=== PATIENT | male | born 1965 | race Caucasian/White ===

== ENCOUNTER 2018-03-15 20:16 | Emergency (ER) | payer OTHER ==
[~2018-03-15] VITALS: Ht 182.9 cm; Wt 99.8 kg
[2018-03-15 20:25] VITALS: BP 159/96
[2018-03-15] MEDS ORDERED: BUPIVACAINE 0.5% 50 ML VIAL. ONE (20:33)
[2018-03-15] MEDS ORDERED: LIDOCAINE WITH 8.4% SOD BICARB 3 ML DISP.SYRIN. ONE (20:34)
[2018-03-15] MEDS ORDERED: LIDOCAINE WITH 8.4% SOD BICARB 3 ML DISP.SYRIN. INJ ONE (21:15)
[2018-03-15] MEDS ORDERED: TETANUS AND DIPHTHERIA TOX/PF 0.5 ML DISP.SYRIN. VAX IM ONE (21:15)
[2018-03-15] MEDS ORDERED: BUPIVACAINE 0.5% 50 ML VIAL. SQ ONE (21:15)
[2018-03-15] MEDS ORDERED: CLIN150C14 PO (21:57)
[2018-03-15] MEDS ORDERED: HYDR-971 PO (21:57)
--- NOTE | 2018-03-15 21:58 | PHYS DOC ---
Past Medical History Past Medical History: Arthritis, GERD Past Surgical History: Hip Replacement Additional Past Surgical Histo: RIGHT HIP REPLACEMENT Drug Use: None Adult General Chief Complaint Chief Complaint: HAND PROBLEM HPI HPI Patient is a 52 year old male who presents with injury to his left ring and middle fingers. Patient reports he was using a table saw and the wood twisted, causing his finger to go into the blade. Bleeding is controlled with pressure. Unknown tetanus status. Denies other injury. Review of Systems Review of Systems Respiratory: Denies cough or shortness of breath [] Cardiovascular: No additional information not addressed in HPI [] Musculoskeletal: Left middle and ring finger laceration Neurologic: Denies focal weakness or sensory changes [] All other systems were reviewed and found to be within normal limits, except as documented in this note. Current Medications Current Medications Current Medications Medications (Trade) Dose Ordered Sig/Damion Start Time Stop Time Status Last Admin Dose Admin Bupivacaine HCl (Marcaine 0.5%) 50 ml 1X ONCE 03/15/18 21:15 03/15/18 21:16 DC 03/15/18 21:15 50 ML Lidocaine/Sodium Bicarbonate (Buffered Lidocaine 1%) 6 ml 1X ONCE 03/15/18 21:15 03/15/18 21:16 DC 03/15/18 22:29 3 ML Tetanus/ Diphtheria Toxoids (Tenivac Syringe) 0.5 ml ONCE ONCE 03/15/18 21:15 03/15/18 21:16 DC 03/15/18 22:28 0.5 ML Allergies Allergies Allergies Coded Allergies Type Severity Reaction Last Updated Verified No Known Drug Allergies 03/15/18 No Physical Exam Physical Exam Constitutional: Well developed, well nourished, no acute distress, non-toxic appearance. [] HENT: Normocephalic, atraumatic Neck: Normal range of motion, no tenderness, supple, no stridor. [] Skin: Warm, dry, two cm jagged laceration to the ulnar aspect of the middle finger. Avulsion laceration to the distal end of the ring finger Neurologic: Alert and oriented X 3, normal motor function, normal sensory function, no focal deficits noted. [] Psychologic: Affect normal, judgement normal, mood normal. [] Current Patient Data Vital Signs Vital Signs Date Time Temp Pulse Resp B/P (MAP) Pulse Ox O2 Delivery O2 Flow Rate FiO2 03/15/18 20:25 98.5 100 20 159/96 (117) 100 Room Air 98.5 EKG EKG [] Radiology/Procedures Radiology/Procedures [] Course & Med Decision Making Course & Med Decision Making Pertinent Labs and Imaging studies reviewed. (See chart for details) Plan: lortab rx, clindamycin rx, tetanus IM, wound care instructions, f/u with PCP, return precautions reviewed Andrey Disclaimer Dragon Disclaimer This electronic medical record was generated, in whole or in part, using a voice recognition dictation system. Departure Departure Impression: Primary Impression: Phalanx, distal fracture of finger Additional Impressions: Finger laceration Laceration of finger Disposition: HOME, SELF-CARE Condition: IMPROVED Referrals: RANGEL ARAUJO II, MD Patient Instructions: Finger Fracture, Fingertip Laceration Additional Instructions: Call Dr. Araujo (orthopedics) on Sunday for a follow up appointment. Scripts Hydrocodone/Apap 5-325 (NORCO 5-325 TABLET) 1 Each Tablet 1-2 TAB PO Q4-6HRS, #30 TAB Prov: RICHARDSON DIAZ APRN 03/15/18 Clindamycin Hcl (CLINDAMYCIN HCL) 150 Mg Capsule 1 CAP PO TID for 10 Days, #30 CAP Prov: RICHARDSON DIAZ APRN 03/15/18 Attending Signature Attending Signature I have reviewed the PA/TEACHING ASSOCIATE's note and plan of care. I was available for consultation as needed during the patient's visit in the emergency department. I agree with the clinical impression, plan, and disposition. Laceration/Wound Repair Laceration/Wound Repair : Wound Location: upper extremity (left middle finger) Wound's Depth, Shape: irregular, nail-avulsed Wound Length (cm): 3 Wound Explored: clean Irrigated w/ Saline (ccs): 100 Anesthesia: 1% Lidocaine, 0.5% Sensorcaine Volume Anesthetic (ccs): 3 Wound Repaired With: sutures Suture Size/Type: 4:0 Number of Sutures: 6 Layer Closure?: No Sterile Dressing Applied?: Yes Splint Applied?: Yes Type of Splint Applied: aluminum finger splint Sling Applied?: No Progress Digital block. Examined under a bloodless field. Laceration/Wound Repair Laceration/Wound Repair : Wound Location: upper extremity (left ring finger) Wound's Depth, Shape: irregular, nail-avulsed Wound Length (cm): 2 Wound Explored: clean Irrigated w/ Saline (ccs): 100 Anesthesia: 1% Lidocaine, 0.5% Sensorcaine Volume Anesthetic (ccs): 3 Wound Repaired With: Dermabond Layer Closure?: No Sterile Dressing Applied?: Yes Splint Applied?: No Sling Applied?: No Progress Digital block. Examined under bloodless field. Dermabond applied over avulsed area. Problem Qualifiers Primary Impression: Phalanx, distal fracture of finger Encounter type: initial encounter Finger: middle finger Fracture type: closed Fracture alignment: nondisplaced Laterality: left Qualified Codes: S62.663A - Nondisplaced fracture of distal phalanx of left middle finger, initial encounter for closed fracture Additional Impressions: Finger laceration Encounter type: initial encounter Finger: middle finger Damage to nail status: with damage Foreign body presence: without foreign body Laterality: left Qualified Codes: S61.313A - Laceration without foreign body of left middle finger with damage to nail, initial encounter Laceration of finger Encounter type: initial encounter Finger: ring finger Damage to nail status : with damage Foreign body presence: without foreign body Laterality: left Qualified Codes: S61.315A - Laceration without foreign body of left ring finger with damage to nail, initial encounter RICHARDSON DIAZ APRN Mar 15, 2018 21:58 JONNIE MÉNDEZ DO Mar 15, 2018 23:04
--- NOTE | 2018-03-16 07:39 | RAD ---
Indication: Injury to the left hand with laceration to third and fourth digits TECHNIQUE: 3 views of the left hand COMPARISON: None FINDINGS: Cortical deformity seen involving the medial aspect of the distal phalanx of the third finger with overlying soft tissue laceration. Soft tissue laceration also seen involving the tip of the fourth finger. IMPRESSION: Laceration injury to the medial cortex of the distal pharynx of the third finger. No extension to the articular surface. Electronically signed by: Claude Lobo DO (03/16/2018 7:36 AM) [facility]
== END 2018-03-15 22:20 | disposition home or self-care (01) ==
LOC: ER 20:16
DX: S62.663A Nondisplaced fracture of distal phalanx of left middle finger, initial encounter for closed fracture (principal); S61.313A Laceration without foreign body of left middle finger with damage to nail, initial encounter; S61.315A Laceration without foreign body of left ring finger with damage to nail, initial encounter; M19.90 Unspecified osteoarthritis, unspecified site; K21.9 Gastro-esophageal reflux disease without esophagitis; Z96.641 Presence of right artificial hip joint; W26.8XXA Contact with other sharp object(s), not elsewhere classified, initial encounter; Y93.89 Activity, other specified; Y92.89 Other specified places as the place of occurrence of the external cause; Y99.8 Other external cause status
CPT/HCPCS: 12002; 29130; 73130; 90471; 90714; 99284; J3490

== ENCOUNTER 2019-01-01 07:18 | Emergency (ER) | payer OTHER ==
[~2019-01-01] VITALS: Ht 185.4 cm; Wt 104.3 kg
[~2019-01-01 07:18] MED LIST: CLIN150C14 PO; HYDR-3164 PO
--- NOTE | 2019-01-01 07:57 | PHYS DOC ---
Past Medical History Past Medical History: Arthritis, Asthma, GERD Past Surgical History: Hip Replacement Additional Past Surgical Histo: RIGHT HIP REPLACEMENT Smoking: Cigarettes (The patient is a nonsmoker.) Alcohol Use: Occasionally Drug Use: None Adult General Chief Complaint Chief Complaint: ASTHMA HPI HPI Patient is a 53-year-old male, with a past history of asthma, who presents to the emergency department for evaluation. He states that yesterday, and worsening this morning, he began having some increasing shortness of breath. Has had a cough, productive of whitish mucus, and he has had some congestion as well. He has not had any fevers or chills. His mucus is mostly white, occasionally yellowish. He did visit the [facility] this past weekend, climbing to the [place] of [place] on Sunday, where he was at the top for about an hour, before returning to [place], and returning to this area on Sunday. He denies any pain, including any chest pain. He has not had any dizziness or lightheadedness, numbness or weakness. There are no alleviating or exacerbating factors to his symptoms. Review of Systems Review of Systems Constitutional: Denies fever or chills [] Eyes: Denies change in visual acuity, redness, or eye pain [] HENT: Denies nasal congestion or sore throat [] Respiratory: No additional information not addressed in HPI [] Cardiovascular: The patient denies any chest pain, palpitations, or orthopnea [] GI: Denies abdominal pain, nausea, vomiting, bloody stools or diarrhea [] : Denies dysuria or hematuria [] Musculoskeletal: Denies back pain or joint pain [] Integument: Denies rash or skin lesions [] Neurologic: Denies headache, focal weakness or sensory changes [] Endocrine: Denies polyuria or polydipsia [] All other systems were reviewed and found to be within normal limits, except as documented in this note. Current Medications Current Medications Current Medications Medications (Trade) Dose Ordered Sig/Damion Start Time Stop Time Status Last Admin Dose Admin Albuterol/ Ipratropium (Duoneb) 3 ml 1X ONCE 01/01/19 08:00 01/01/19 08:01 DC 01/01/19 08:30 3 ML Methylprednisolone Sodium Succinate (SOLU-Medrol 125MG VIAL) 125 mg 1X ONCE 01/01/19 08:45 01/01/19 08:46 01/01/19 08:42 125 MG Allergies Allergies Allergies Coded Allergies Type Severity Reaction Last Updated Verified No Known Drug Allergies 03/15/18 No Physical Exam Physical Exam PHYSICAL EXAM: CONSTITUTIONAL: Well developed, well nourished HEAD: normocephalic, atraumatic EENT: PERRL, EOMI. Conjunctivae normal color, sclerae non-icteric; moist mucous membranes. NECK: Supple, non-tender; no meningismus. LUNGS: There are scattered coarse rhonchi in all lung [place], without any wheezes or rales. breathing even and unlabored. Normal air movement. HEART: Regular rate and rhythm, no murmur CHEST: No deformity; non-tender ABDOMEN: The abdomen is soft, and non-tender, no masses or bruits. EXTREM: Normal ROM; no deformity, no calf tenderness. Normal pulses palpable in all extremities. There is no pedal edema. SKIN: No rash; no diaphoresis NEURO: Alert; normal speech and cognition; CN's grossly intact; strength grossly intact without focal deficit. BACK: No CVA TTP. Current Patient Data Vital Signs Vital Signs Date Time Temp Pulse Resp B/P (MAP) Pulse Ox O2 Delivery O2 Flow Rate FiO2 01/01/19 08:30 97 Room Air 01/01/19 07:24 97.7 100 18 142/89 (106) 97.7 Lab Values Laboratory Tests Test 01/01/19 07:56 White Blood Count 6.5 x10^3/uL (4.0-11.0) Red Blood Count 5.38 x10^6/uL (4.30-5.70) Hemoglobin 13.6 g/dL (13.0-17.5) Hematocrit 42.3 % (39.0-53.0) Mean Corpuscular Volume 79 fL (79-100) Mean Corpuscular Hemoglobin 25 pg (25-35) Mean Corpuscular Hemoglobin Concent 32 g/dL (31-37) Red Cell Distribution Width 15.2 % (11.5-14.5) H Platelet Count 161 x10^3/uL (140-400) Neutrophils (%) (Auto) 59 % (31-73) Lymphocytes (%) (Auto) 16 % (24-48) L Monocytes (%) (Auto) 6 % (0-9) Eosinophils (%) (Auto) 18 % (0-3) H Basophils (%) (Auto) 2 % (0-3) Neutrophils # (Auto) 3.8 x10^3uL (1.8-7.7) Lymphocytes # (Auto) 1.0 x10^3/uL (1.0-4.8) Monocytes # (Auto) 0.4 x10^3/uL (0.0-1.1) Eosinophils # (Auto) 1.2 x10^3/uL (0.0-0.7) H Basophils # (Auto) 0.1 x10^3/uL (0.0-0.2) Platelet Estimate Pending Sodium Level 139 mmol/L (136-145) Potassium Level 3.6 mmol/L (3.5-5.1) Chloride Level 102 mmol/L (98-107) Carbon Dioxide Level 25 mmol/L (21-32) Anion Gap 12 (6-14) Blood Urea Nitrogen 15 mg/dL (8-26) Creatinine 0.9 mg/dL (0.7-1.3) Estimated GFR (Cockcroft-Gault) 87.6 Glucose Level 145 mg/dL (70-99) H Lactic Acid Level 1.3 mmol/L (0.4-2.0) Calcium Level 8.7 mg/dL (8.5-10.1) EA-Edu-M-Type Natriuretic Peptide 31 pg/mL (0-124) Laboratory Tests 01/01/19 07:56 Laboratory Tests 01/01/19 07:56 EKG EKG Normal sinus rhythm a rate of 84 bpm, normal axis, normal intervals, Q waves in lead III only without other acute ischemic ST/T changes.[] Radiology/Procedures Radiology/Procedures [PROCEDURE: CHEST PA & LATERAL PA and lateral chest radiographs 01/01/2019 CLINICAL HISTORY: Cough and shortness of breath. PA and lateral digital radiographs of the chest were obtained. No previous studies are available for comparison. The cardiac silhouette is normal in size. The thoracic aorta is tortuous. Atherosclerotic calcification of the thoracic aorta is seen. Mild emphysematous changes are seen bilaterally. No acute pulmonary infiltrate is noted. No pneumothorax or pleural effusion is seen. Degenerative changes are seen involving the thoracic spine. IMPRESSION: No acute abnormality is seen.] Course & Med Decision Making Course & Med Decision Making Pertinent Labs and Imaging studies reviewed. (See chart for details) []Patient condition remains stable. I do have concern for the possibility of a bacterial super infection, given his significant mucus production, and I will treat the patient with antibiotics. The importance of close follow-up was discussed in detail. I did discuss a mildly elevated glucose, which was nonfasting, and the need for PCP follow-up of this as well. Patient does have an adequate supply of his inhaler at home, With a refill Dragon Disclaimer Dragon Disclaimer This electronic medical record was generated, in whole or in part, using a voice recognition dictation system. Departure Departure Impression: Primary Impression: Bronchitis Disposition: HOME, SELF-CARE Condition: STABLE Patient Instructions: Acute Bronchitis, Asthma, Adult Scripts Prednisone (PREDNISONE) 20 Mg Tablet 40 MG PO DAILY for 5 Days, #10 TAB Prov: VAN NYE MD 01/01/19 Azithromycin (AZITHROMYCIN TABLET) 250 Mg Tablet 1 PKG PO UD, #6 TAB Prov: VAN NYE MD 01/01/19 VAN NYE MD Jan 01, 2019 07:56
[2019-01-01] MEDS ORDERED: IPRATRPIUM/ALBUTEROL 0.5/2.5MG 3 ML NEBU. NEB ONE (08:00)
[2019-01-01 08:13] LABS: BASO # 0.1 x10^3/uL (0.0-0.2); BASO % 2 % (0-3); EOS # 1.2 x10^3/uL (0.0-0.7); EOS % 18 % (0-3); HEMATOCRIT 42.3 % (39.0-53.0); HEMOGLOBIN 13.6 g/dL (13.0-17.5); LYMPH % 16 % (24-48); MEAN CORPUSCULAR HEMOGLOBIN 25 pg (25-35); MEAN CORPUSCULAR HGB CONC 32 g/dL (31-37); MEAN CORPUSCULAR VOLUME 79 fL (79-100); MONO # 0.4 x10^3/uL (0.0-1.1); MONO % 6 % (0-9); NEUT # 3.8 x10^3uL (1.8-7.7); NEUT % 59 % (31-73); PLATELET COUNT 161 x10^3/uL (140-400); RED BLOOD COUNT 5.38 x10^6/uL (4.30-5.70); RED CELL DISTRIBUTION WIDTH 15.2 % (11.5-14.5); WHITE BLOOD COUNT 6.5 x10^3/uL (4.0-11.0)
--- NOTE | 2019-01-01 08:16 | EKG ---
[facility] [address] [place] [address] Test Date: 2019-01-01 Test Time: 08:04:23 Pat Name: SHELLY GAMBINO Department: Room: Gender: M Hospital Fellow: : 1965 Requested By: VAN NYE Order Number: [id number] Reading MD: Measurements Intervals [place] Rate: 84 P: 6 CT: 164 QRS: 21 QRSD: 98 T: 41 QT: 378 QTc: 450 Interpretive Statements SINUS RHYTHM NO SPECIFIC ECG ABNORMALITIES RI6.01 No previous ECG available for comparison
--- NOTE | 2019-01-01 08:20 | RAD ---
PA and lateral chest radiographs 01/01/2019 CLINICAL HISTORY: Cough and shortness of breath. PA and lateral digital radiographs of the chest were obtained. No previous studies are available for comparison. The cardiac silhouette is normal in size. The thoracic aorta is tortuous. Atherosclerotic calcification of the thoracic aorta is seen. Mild emphysematous changes are seen bilaterally. No acute pulmonary infiltrate is noted. No pneumothorax or pleural effusion is seen. Degenerative changes are seen involving the thoracic spine. IMPRESSION: No acute abnormality is seen. Electronically signed by: Glenn Loving MD (01/01/2019 8:17 AM) [id number]
[2019-01-01 08:21] LABS: CALCIUM 8.7 mg/dL (8.5-10.1); CREATININE 0.9 mg/dL (0.7-1.3); GFR 87.6; POTASSIUM 3.6 mmol/L (3.5-5.1)
[2019-01-01 08:30] VITALS: BP 144/82
[2019-01-01] MEDS ORDERED: methylPREDNISolone SOD SUCC PF 125 MG/2 ML VIAL. IV ONE (08:45)
[2019-01-01] MEDS ORDERED: AZIT250T6 PO (08:48)
[2019-01-01] MEDS ORDERED: PRED20TA PO (08:48)
[2019-01-01 09:12] LABS: % BANDS 1 % (0-9); % EOS 12 % (0-5); % LYMPHS 20 % (24-48); % MONOS 7 % (0-10); % SEGS 60 % (35-66); PLT ESTIMATE ADEQUATE (ADEQUATE)
== END 2019-01-01 09:01 | disposition home or self-care (01) ==
LOC: ER 07:18
DX: J45.909 Unspecified asthma, uncomplicated (principal); K21.9 Gastro-esophageal reflux disease without esophagitis; M19.90 Unspecified osteoarthritis, unspecified site; Z96.641 Presence of right artificial hip joint
CPT/HCPCS: 36415; 71046; 80048; 83605; 83880; 85007; 85025; 87040; 93005; 94640; 96374; 99285; J2930; J7620